=== PATIENT | male | born 1960 | race Caucasian/White ===

== ENCOUNTER 2023-08-21 13:02 | Outpatient (CLI) | payer OTHER, SELFPAY ==
[2023-08-21 13:22] VITALS: PULSE 77; RESP 18; O2SAT 98
[2023-08-21] MEDS: albuterol 2.5 mg/3 mL Neb INHALATION (13:22)
[2023-08-21 13:27] VITALS: PULSE 77
== END 2023-08-21 13:03 | disposition home or self-care (01) ==
LOC: RT 13:07
PROVIDERS: PCP Physician Assistant; Visit Provider Nurse Practitioner Family
DX: R06.00 Dyspnea, unspecified (principal); Z87.891 Personal history of nicotine dependence
CPT/HCPCS: 94060

== ENCOUNTER 2023-12-02 08:44 | Outpatient (CLI) | payer MEDICARE, SELFPAY ==
[2023-12-02 09:21] LABS: INR 1.36 (0.8-1.2)
== END 2023-12-02 08:45 | disposition home or self-care (01) ==
LOC: LAB 08:45
PROVIDERS: PCP Physician Assistant; Visit Provider Internal Medicine
DX: I10 Essential (primary) hypertension (principal)
CPT/HCPCS: 85610

== ENCOUNTER → 2024-01-14 08:15 | Outpatient (BNVA) | payer MEDICARE, SELFPAY | PROVIDERS: PCP Physician Assistant; Referring Provider Physician Assistant; Visit Provider Specialist | DX: G31.83 Neurocognitive disorder with Lewy bodies (principal); F02.80 Dementia in other diseases classified elsewhere, unspecified severity, without behavioral disturbance, psychotic disturbance, mood disturbance, and anxiety; G93.1 Anoxic brain damage, not elsewhere classified; I42.9 Cardiomyopathy, unspecified | CPT/HCPCS: 96116; 99204; 99205 ==